=== PATIENT | male | born 1995 | race Caucasian/White ===

== ENCOUNTER 2017-05-09 20:18 | Emergency (ER) | payer BC ==
[2017-05-09] MEDS ORDERED: IPRATROPIUM/ALBUTEROL 3 ML DEYVIAL IH ONE (20:28)
[2017-05-09 20:39] VITALS: TEMP 98.1
--- NOTE | 2017-05-09 20:53 | EDPHY ---
H & P Time Seen by Provider: 05/09/17 20:34 HPI/ROS: This patient reports wheezing shortness of breath despite frequent albuterol use over the past 24 hr. He explains that 4 days ago he develops nasal congestion and a sore throat. The sore throat has resolved but the congestion persists. He has had subjective fevers intermittently since that time with increasing frequency of cough and wheeze. He has a tight feeling in his chest that feels similar to prior episodes of asthma exacerbations that is only partially relieved by the albuterol and has a feeling that there is congestion as chest these unable to clear. 2 days ago he had chills with his fevers but no chills since that time. He is accompanied by his girlfriend and they arrived here by private vehicle for further evaluation. ROS: Constitutional: No significant fatigue. HEENT: No ear pain. Neuro: No headache. For pulmonary: No hemoptysis. No pleuritic pain Cardiovascular: Mild lightheadedness after using albuterol but otherwise no complaints. No leg swelling or calf pain. GI: No vomiting or diarrhea. No abdominal pain. 7 point ROS is otherwise negative. Past Medical/Surgical History: Moderate asthma. Smoking Status: Never smoked Physical Exam: Vital signs are notable for a mild decrease in O2 sat 95% on room air. Other vitals are normal General Appearance: Alert, no distress. Eyes: Pupils equal and round no pallor or injection. ENT, Mouth: Mucous membranes moist. Nose: Clear discharge bilaterally. No sinus tenderness to percussion. Ears: Clear external canals and TMs bilaterally. Respiratory: Patient has rhonchi bilaterally. Mild wheezing bilaterally. Borderline rales at the left base. These clear with deep breaths. Cardiovascular: Regular rate and rhythm. No murmur gallop rub. No peripheral edema or calf tenderness. Gastrointestinal: Abdomen is soft and nontender, no masses, bowel sounds normal. Neurological: GCS 15. Skin: Warm and dry, no rashes. Musculoskeletal: Neck is supple nontender. Extremities are symmetrical, full range of motion. Psychiatric: Mood and affect are normal. DIFFERENTIAL DIAGNOSIS: After history and physical exam differential diagnosis was considered for viral URI with asthma exacerbation, influenza, pneumonia, bronchitis with asthma exacerbation Constitutional: Initial Vital Signs Temperature (C) 36.7 C 05/09/17 20:35 Heart Rate 82 02/13/18 20:35 Respiratory Rate 16 05/09/17 20:35 Blood Pressure 147/63 H 05/09/17 20:35 O2 Sat (%) 95 05/09/17 20:35 O2 Delivery Mode Room Air Allergies/Adverse Reactions: No Known Allergies Allergy (Unverified 05/09/17 20:35) Home Medications: Medication Instructions Recorded Albuterol 05/09/17 Albuterol Hfa Anes Only [Proair 2 puffs IH Q4 PRN #1 mdi 05/09/17 Hfa Icu (*)] Fluticasone Hfa 220 Mcg [Flovent 2 puffs IH DAILY #1 mdi 05/09/17 220 MCG Hfa MDI (*)] predniSONE 40 mg PO DAILY #10 tab 05/09/17 MDM/Departure - MDM Diagnostics: Influenza swab is negative Two view chest x-ray: Airway disease but no focal infiltrates by my interpretation. Imaging Results: Imaging Impressions Chest X-Ray 05/09/17 20:45 Impression: Mild bronchitis. No other findings for acute cardiopulmonary abnormality. Medications Given: Discontinued Medications Albuterol/Ipratropium (Duoneb) 3 ml IH EDNOW ONE Stop: 05/09/17 20:29 Last Admin: 05/09/17 20:31 Dose: 3 ml ED Course/Re-evaluation: Albuterol neb with increased aeration decreased wheeze. Prednisone 60 mg p. o. I counseled the patient regarding asthma exacerbation and viral illnesses. After albuterol neb peak flow is 480 with a predicted of 590. Discussion: Patient presents with viral URI complicated by asthma exacerbation improved with treatment. I do not appreciate evidence of pneumonia on his radiograph in his minimal rales/rhonchi improved after albuterol neb. I counseled the patient regarding viral URI and asthma exacerbation answered all his questions. He is comfortable with plan to start prednisone: Flovent and continue albuterol. He understands the need to return emergency department should he have any worsening of symptoms despite the treatment plan. - Depart Disposition: Home, Routine, Self-Care Clinical Impression: Viral URI Asthma exacerbation Qualifiers: Asthma severity: mild Asthma persistence: persistent Qualified Code(s): J45.31 - Mild persistent asthma with (acute) exacerbation Condition: Good Instructions: Asthma (ED), Upper Respiratory Infection (ED) Additional Instructions: Diagnosis: 1. Asthma exacerbation 2. Viral upper respiratory infection Plan: Humidifier Prednisone steroid. Take this after breakfast in the mornings. Flovent steroid inhaler in addition Continue your albuterol. Tylenol if needed for fevers. Guaifenesin mucolytic Return if you develops any high fevers or chills, shortness of breath or other concerns despite the treatment plan. Follow up primary care physician for recheck for any symptoms that persist beyond the next week despite the treatment plan. Prescriptions: Albuterol Hfa Anes Only [Proair Hfa Icu (*)] 2 puffs IH Q4 PRN #1 mdi PRN Reason: Wheezing Fluticasone Hfa 220 Mcg [Flovent 220 MCG Hfa MDI (*)] 2 puffs IH DAILY #1 mdi predniSONE 40 mg PO DAILY #10 tab Referrals: NONE *PRIMARY CARE P,. [Primary Care Provider] - As per Instructions Vilma Mojica MD [Medical Doctor] - As per Instructions
[2017-05-09] MEDS ORDERED: predniSONE 20 MG TAB PO ONE (21:07)
[2017-05-09 21:34] VITALS: BP 134/53; PULSE 100; RESP 15; O2SAT 94
== END 2017-05-09 21:30 | disposition home or self-care (01) ==
LOC: CED 20:18
DX: J45.31 Mild persistent asthma with (acute) exacerbation (principal); J06.9 Acute upper respiratory infection, unspecified
CPT/HCPCS: 71046-PO; 87400-PO; J7512

== ENCOUNTER 2017-05-25 21:13 | Emergency (ER) | payer BC ==
--- NOTE | 2017-05-25 21:41 | EDPHY ---
H & P Time Seen by Provider: 05/25/17 21:38 HPI/ROS: Chief complaint. Fever and chills HPI. 21-year-old male presents emergency department with fever and chills that began this afternoon. Initially at about 1:00 p.m. He was at class and started to have chills. He noted decreased appetite. Then shaky and fever. He took his temperature this afternoon 102 degrees. Took some Advil. He has been exposed to Infectious Disease at school. A week ago he was also exposed to mouse droppings in [facility]. He has no rash. He really has no cough or shortness of breath. He was seen 2 weeks ago for asthma exacerbation and treated with prednisone and his breathing has been really quite good since then. No unusual leg pain or swelling. ROS Constitutional. Fever and chills Eyes. no problems with vision ENT. Some congestion Cardiovascular. no chest pain Respiratory. no shortness of breath, no cough Abdominal. no abdominal pain, no nausea/vomiting, no diarrhea . no problems urinating MS. no calf pain/swelling, no neck/back pain, no joint pain Skin. no rash Lymph. no swollen glands Neuro. no headache, no dizziness, no difficulty walking or with speech Past Medical/Surgical History: Asthma Social History: Single, nonsmoker, no alcohol Smoking Status: Never smoked Physical Exam: General Appearance: Alert well-developed male moderate distress vital signs show temp 38.7 degrees with heart rate 111 Eyes: Pupils equal and round no pallor or injection. ENT, pharynx slightly injected without exudate Respiratory: No retractions. Slight inspiratory expiratory rhonchi in both lung bases Cardiovascular: Regular rate and rhythm. Gastrointestinal: Abdomen is soft and nontender, no masses, bowel sounds normal. Neurological: Awake and alert, sensory and motor exams grossly normal. Skin: Warm and dry, no rashes. No adenopathy Musculoskeletal: Neck is supple nontender. Extremities symmetrical, full range of motion. Psychiatric: Patient is oriented X 3, there is no agitation. Constitutional: Initial Vital Signs Temperature (C) 38.7 C H 05/25/17 21:18 Heart Rate 111 H 05/25/17 21:18 Respiratory Rate 18 05/25/17 21:18 Blood Pressure 127/65 H 05/25/17 21:18 O2 Sat (%) 96 05/25/17 21:18 O2 Delivery Mode Room Air Allergies/Adverse Reactions: No Known Allergies Allergy (Unverified 05/09/17 20:35) Home Medications: Medication Instructions Recorded Albuterol 05/09/17 Albuterol Hfa Anes Only [Proair 2 puffs IH Q4 PRN #1 mdi 05/09/17 Hfa Icu (*)] Fluticasone Hfa 220 Mcg [Flovent 2 puffs IH DAILY #1 mdi 05/09/17 220 MCG Hfa MDI (*)] Oseltamivir Phosphate [Tamiflu 75 75 mg PO BID #10 cap 05/25/17 mg (*)] Medical Decision Making Procedures: Tylenol 1000 mg orally ED Course/Re-evaluation: Rapid flu swab is negative Re-evaluation at 10:30 p.m.. Patient is stable. Patient and I discussed treatment plan including criteria for return importance of follow-up and further evaluation. He expresses understanding and agreement Clinically would appear that the patient has the flu. I do not think that he has hanta virus or the plague. The rapid flu swab is negative. We will send it to [facility] for PCR. He will be given his 1st dose of Tamiflu in the emergency department and then will call back for test results. Differential Diagnosis: I considered influenza, pneumonia, other viral syndromes. Patient does have a history of about a week ago exposure to some mouse droppings. I do not think he has plague or hanta - Data Points Laboratory Results: 05/25/17 21:25 Influenza A,B Rapid NEGATIVE FOR FLU (NEGATIVE) Medications Given: Discontinued Medications Acetaminophen (Tylenol) 1,000 mg PO EDNOW ONE Stop: 05/25/17 21:56 Last Admin: 05/25/17 22:04 Dose: 1,000 mg Ibuprofen (Motrin) 400 mg PO EDNOW ONE Stop: 05/25/17 22:30 Last Admin: 05/25/17 22:30 Dose: 400 mg Oseltamivir Phosphate (Tamiflu) 75 mg PO EDNOW ONE Stop: 05/25/17 22:30 Last Admin: 05/25/17 22:30 Dose: 75 mg Departure - Departure Disposition: Home, Routine, Self-Care Clinical Impression: Viral syndrome Condition: Good Instructions: Viral Syndrome (ED) Additional Instructions: Tylenol 1000 mg every 4-6 hours, ibuprofen 600 mg every 6 hr for fever and achiness. Drink plenty of fluids and stay hydrated. We will give you year 1st dose of Tamiflu in the emergency department. Please call back for flu swab results from [facility]. If positive fill the prescription that you are given tonight for Tamiflu 1 pill twice daily for 5 days. Recheck 2 days if not improving. Return for worsening symptoms Referrals: NONE *PRIMARY CARE P,. [Primary Care Provider] - As per Instructions Prescriptions: Oseltamivir Phosphate [Tamiflu 75 mg (*)] 75 mg PO BID #10 cap
[2017-05-25] MEDS ORDERED: ACETAMINOPHEN 500 MG TAB PO ONE (21:55)
[2017-05-25] MEDS ORDERED: OSELTAMIVIR PHOSPHATE 75 MG CAP ONE (22:26)
[2017-05-25] MEDS ORDERED: IBUPROFEN 200 MG TAB PO ONE ×2 (22:27→22:29)
[2017-05-25] MEDS ORDERED: OSELTAMIVIR PHOSPHATE 75 MG CAP PO ONE (22:29)
[2017-05-25 22:33] VITALS: RESP 16; TEMP 100; O2SAT 97
[2017-05-25 23:03] VITALS: BP 116/62; PULSE 84
== END 2017-05-25 23:03 | disposition home or self-care (01) ==
LOC: CED 21:13
DX: B34.9 Viral infection, unspecified (principal); J45.909 Unspecified asthma, uncomplicated
CPT/HCPCS: 87400-PO

== ENCOUNTER 2018-07-07 22:03 | Emergency (ER) | payer BC ==
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
[2018-07-07] MEDS ORDERED: HYDROCODONE/APAP 5/325 TAB PO ONE (22:40)
[2018-07-07] MEDS ORDERED: LIDOCAINE HCL 4% TOPICAL SOLN 50ML TP ONE (22:43)
[2018-07-07] MEDS ORDERED: HYDROCOD/APAP 5/325 PREPACK#6 BTL TAKEHOME ONE (23:22)
[2018-07-07 23:46] VITALS: BP 110/62
== END 2018-07-07 23:45 | disposition home or self-care (01) ==
PROC: 0NSBXZZ Reposition Nasal Bone, External Approach (ICD-10-PCS; principal; 2018-07-07)
DX: S02.2XXA Fracture of nasal bones, initial encounter for closed fracture (principal); W50.0XXA Accidental hit or strike by another person, initial encounter